=== PATIENT | female | born 1995 | race American Indian/Alaskan Native ===

== ENCOUNTER 2018-04-22 19:16 | Outpatient (CLI) | payer MEDICAID ==
[2018-04-22] MEDS ORDERED: LACTATED RINGERS 500 ML IV ONE (19:34)
[2018-04-22 19:41] VITALS: BP 111/67
--- NOTE | 2018-04-22 23:17 | Ultrasound Report ---
FINAL REPORT PROCEDURE: Limited obstetrical ultrasound. TECHNIQUE: Real-time limited sonographic examination was performed for evaluation of size, position, heartbeat, fluid volume for each fetus with image documentation (1 or more fetuses). CPT 95273 HISTORY: , evaluate presentation and amniotic fluid index. COMPARISON: No prior studies are available for comparison. FINDINGS: There is a single viable fetus in cephalic presentation. Cardiac activity is documented at 137 beats per minute. The amniotic fluid index measures 20.0 centimeters. IMPRESSION: Normal limited ultrasound as described.
== END 2018-04-22 21:09 | disposition home or self-care (01) ==
LOC: TRG 19:16
PROVIDERS: ATTEND Obstetrics & Gynecology
DX: O46.93 Antepartum hemorrhage, unspecified, third trimester (principal); Z3A.34 34 weeks gestation of pregnancy
CPT/HCPCS: 59025; 76815